=== PATIENT | female | born 1975 ===

== ENCOUNTER 2023-11-27 15:59 | Emergency (ER) | payer OTHER ==
[~2023-11-27] VITALS: Ht 157.5 cm; Wt 90.0 kg
[2023-11-27 16:04] VITALS: TEMP 98.2
[2023-11-27] MEDS ORDERED: IBUP-45 PO (16:07)
[2023-11-27] MEDS ORDERED: KETO10TA2 PO (16:07)
[2023-11-27] MEDS: DEXAMETHASONE SOD PHOS 4 MG/ML 5 ML VIAL IVP ONE (18:38)
[2023-11-27] MEDS: KETOROLAC TROMETHAMINE 30 MG/ML VIAL IVP ONE (18:38)
[2023-11-27 19:12] VITALS: BP 135/65; PULSE 64; RESP 20; O2SAT 98
[2023-11-27] MEDS: HYDROmorphone HCL 2 MG/ML SYRINGE IVP ONE (19:36)
[2023-11-27] MEDS: ONDANSETRON HCL 4 MG/2 ML VIAL IVP ONE (19:36)
[2023-11-27] MEDS ORDERED: IBUP-1492 PO (21:50)
[2023-11-27] MEDS ORDERED: METH-812 PO (21:50)
== END 2023-11-27 22:00 | disposition home or self-care (01) ==
LOC: EMS 15:59
DX: M54.42 Lumbago with sciatica, left side (principal); Z98.890 Other specified postprocedural states
CPT/HCPCS: 99285; 96374; 96375; 72131; J1100; J1170; J1885; J2405